=== PATIENT | male | born 1965 | race Caucasian/White ===

== ENCOUNTER 2018-10-09 22:12 | Emergency (ER) | payer OTHER ==
[~2018-10-09] VITALS: Ht 165.1 cm; Wt 59.0 kg
[~2018-10-09 22:12] MED LIST: DOCU-230 PO; HYDR-3601 PO; INSU100I33 SC; LISI-313 PO; METF100010 PO; ONDA4TAB13 PO; POLY119P3 PO; SIMV40TA3 PO
[2018-10-09 22:16] VITALS: Ht 165.1 cm; Wt 59.0 kg
--- NOTE | 2018-10-09 23:29 | ERD ---
ER Documentation Chief Complaint Chief Complaint Pt wants to make sure jean cath is still in place after catching on shirt HPI Patient is a 53-year-old male with gastric cancer who presents to check his Port-A-Cath. He said that his Port-A-Cath got stuck on a short while he was taking his shirt off. He is currently receiving chemo through it. He was concerned that it might of dislodged. Upon review of old medical records this is the patient's second visit since April 2018. He has had no leakage from around the site. ROS All systems reviewed and are negative except as per history of present illness. Medications Home Meds Active Scripts Hydrocodone Bit-Acetaminophen (Hydrocodone Bit-APAP) 5-325MG Tablet, 1 TAB PO Q4H PRN for MODERATE PAIN LEVEL 4-6, #20 TAB Prov:ZORAIDA CUETO WAXER 05/09/18 Ondansetron Hcl* (Zofran*) 4 Mg Tab, 4 MG PO Q6H PRN for NAUSEA AND OR VOMITING, #20 TAB Prov:ZORAIDA CUETO WAXER 05/09/18 Reported Medications Insulin Glargine,Hum.rec.anlog (Basaglar Kwikpen U-100) 100 Unit/1 Ml Insuln.pen, SC, EA 04/25/18 Polyethylene Glycol 3350 (Clearlax) 119 Gm Powder, 238 GM PO DAILY 04/25/18 Docusate Sodium* (Stool Softener*) 100 Mg Capsule, 100 MG PO QHS PRN for CONSTIP ATION, CAP 04/25/18 Lisinopril* (Lisinopril*) 5 Mg Tablet, 5 MG PO DAILY, #30 TAB 04/25/18 Simvastatin (Simvastatin) 40 Mg Tablet, 40 MG PO QHS, #30 TAB 04/25/18 Metformin Hcl* (Metformin Hcl*) 1,000 Mg Tablet, 1000 MG PO BID WITH MEALS, #30 TAB 04/25/18 Allergies Allergies: Coded Allergies: No Known Allergy (Unverified , 04/25/18) PMhx/Soc History of Surgery: Yes Anesthesia Reaction: No Hx Neurological Disorder: No Hx Respiratory Disorders: No Hx Cardiac Disorders: No Hx Psychiatric Problems: No Hx Miscellaneous Medical Probl: Yes (STOMACH CA ) Hx Alcohol Use: No Hx Substance Use: No Hx Tobacco Use: No Smoking Status: Never smoker FmHx Family History: No diabetes Physical Exam Vitals Vital Signs Date Temp Pulse Resp B/P (MAP) Pulse Ox O2 O2 Flow FiO2 Time Delivery Rate 10/09/18 99.0 88 16 136/75 98 22:16 (95) Physical Exam Const: No acute distress Head: Atraumatic Eyes: Normal Conjunctiva ENT: Normal External Ears, Nose and Mouth. Neck: Full range of motion. No meningismus. Resp: Clear to auscultation bilaterally Cardio: Regular rate and rhythm, no murmurs Abd: Soft, non tender, non distended. Normal bowel sounds Skin: Port-A-Cath is seen in the right chest wall without signs of extravasation or leakage at this time Back: No midline or flank tenderness Ext: No cyanosis, or edema Neur: Awake and alert Psych: Normal Mood and Affect Procedures/MDM Chest X-ray 1V Interpreted by me: Soft Tissue: No acute abnormalities Bones: No acute abnormalities Mediastinum/Cardiac Silhouette/Lungs: Port-A-Cath in the superior vena cava in appropriate position Patient is a 53-year-old male who presents for Port-A-Cath placement check. The patient had an x-ray which showed Port-A-Cath in appropriate position. There does not appear to have any sign of extravasation or dislodgment. Patient will be discharged and can return for any worsening symptoms. Departure Diagnosis: Primary Impression: Port-A-Cath in place Condition: Fair Patient Instructions: IV Catheter Site Care Referrals: Your doctor Additional Instructions: Llame al doctor nomjude harris (Referral Sources) MAANA y spenser jeaneth ELOISE PARA DENTRO DE JEANETH SEMANA. Dgale a la secretaria que nosotros le instruimos hacer esta eloise.Avise o llame si kendall condicin se empeora antes de la eloise. LUCILLE BOYD MD Oct 09, 2018 23:29
[2018-10-09 23:40] VITALS: BP 130/89; PULSE 78; RESP 16
== END 2018-10-09 23:40 | disposition home or self-care (01) ==
LOC: E/R 22:12
DX: Z45.2 Encounter for adjustment and management of vascular access device (principal); D00.2 Carcinoma in situ of stomach; Z79.4 Long term (current) use of insulin
CPT/HCPCS: 71045; Z7502